=== PATIENT | male | born 1975 | race African-American/Black ===

== ENCOUNTER → 2021-07-22 | Day surgery (SDC) | payer OTHER ==
[~2021-07-22] VITALS: Ht 172.7 cm; Wt 108.9 kg
[~2021-07-22] MED LIST: AZITHROMYCIN250 MG PO; VOLTAREN **OUT75 MG PO
== END | disposition home or self-care (01) ==
LOC: FAS 12:33
DX: Z12.11 Encounter for screening for malignant neoplasm of colon (principal); K63.5 Polyp of colon; K21.9 Gastro-esophageal reflux disease without esophagitis; G47.33 Obstructive sleep apnea (adult) (pediatric); G47.30 Sleep apnea, unspecified
CPT/HCPCS: J2250; J2704; J7120